=== PATIENT | male | born 1980 | race Caucasian/White ===

== ENCOUNTER 2017-10-26 16:52 | Emergency (ER) | payer SELFPAY ==
[~2017-10-26] VITALS: Ht 180.3 cm; Wt 93.2 kg
[2017-10-26 16:57] VITALS: BP 127/75; PULSE 112; TEMP 97.8
[2017-10-26] MEDS ORDERED: ANTIBIOTIC PO (17:26)
== END 2017-10-26 17:29 | disposition home or self-care (01) ==
LOC: COL.ER 16:52
DX: K08.89 Other specified disorders of teeth and supporting structures (principal); F17.210 Nicotine dependence, cigarettes, uncomplicated

== ENCOUNTER 2020-06-30 17:23 | Emergency (ER) | payer BC, MEDICAID ==
[~2020-06-30] VITALS: Ht 180.3 cm; Wt 95.0 kg
[~2020-06-30 17:23] MED LIST: ANTIBIOTIC PO
[2020-06-30 17:33] VITALS: PULSE 120; TEMP 98.9
[2020-06-30 18:58] LABS: BASO % 0.4 % (0.0-2.0); EOS # 0.1 (0.0-0.7); EOS % 2.2 % (0-4.0); GRAN % 61.1 % (42.2-75.2); HEMATOCRIT 40.6 % (42.0-52.0); HEMOGLOBIN 14.7 g/dl (13.5-18.0); LYMPH # 1.3 (1.2-3.4); LYMPH % 25.7 % (20.0-51.0); MEAN CELL VOLUME 90 fl (80.0-100.0); MEAN CORPUSCULAR HEMOGLOBIN 33 pg (27.0-31.0); MEAN CORPUSCULAR HGB CONC 36 g/dl (33.0-37.0); MEAN PLATELET VOLUME 9.6 fl (7.4-10.4); MONO # 0.5 (0.1-0.6); PLATELET COUNT 177 K/mm3 (130-400); REDCELL DISTRIBUTION WIDTH-CV 11.9 % (11.5-14.5)
[2020-06-30 19:11] LABS: ALANINE AMINOTRANSFERASE 23 U/L (4-49); ALBUMIN 4.3 gm/dL (3.5-5.0); ALKALINE PHOSPHATASE 154 U/L (50-136); ANION GAP 10 mmol/L (7-16); AST,SGOT 18 U/L (15-37); BILIRUBIN,TOTAL 0.8 mg/dL (0.0-1.0); BLOOD UREA NITROGEN 10 mg/dL (9-20); C-REACTIVE PROTEIN 0.7 mg/dL (0.0-0.9); CALCIUM 9.3 mg/dL (8.4-10.2); CARBON DIOXIDE 24 mmol/L (22-30); CHLORIDE 103 mmol/L (98-107); CREATININE, serum 0.85 (0.66-1.25); GLUCOSE 284 mg/dL (74-106); POTASSIUM 4.4 mmol/L (3.4-5.0); SODIUM 137 mmol/L (137-145)
[2020-06-30 19:12] LABS: ACETONE,SERUM NEGATIVE
[2020-06-30 20:52] VITALS: BP 137/88
== END 2020-06-30 20:34 | disposition home or self-care (01) ==
LOC: COL.ER 17:23
PROVIDERS: Emergency Medicine
DX: E11.40 Type 2 diabetes mellitus with diabetic neuropathy, unspecified (principal); E11.65 Type 2 diabetes mellitus with hyperglycemia; F17.200 Nicotine dependence, unspecified, uncomplicated; Z88.0 Allergy status to penicillin; Z79.84 Long term (current) use of oral hypoglycemic drugs
CPT/HCPCS: J7030

== ENCOUNTER 2020-12-23 21:31 | Emergency (ER) | payer BC, MEDICAID ==
[~2020-12-23] VITALS: Ht 180.3 cm; Wt 93.2 kg
[2020-12-23] MEDS ORDERED: FLEXERIL 1010 MG/TAB PO (22:35)
[2020-12-23] MEDS ORDERED: MOTRIN 400400 MG/TAB PO (22:35)
[2020-12-23 23:20] VITALS: BP 107/66; PULSE 95; TEMP 97.7
== END 2020-12-23 23:20 | disposition home or self-care (01) ==
LOC: COL.ER 21:31
DX: S16.1XXA Strain of muscle, fascia and tendon at neck level, initial encounter (principal); Z88.0 Allergy status to penicillin; X58.XXXA Exposure to other specified factors, initial encounter
CPT/HCPCS: J1885

== ENCOUNTER 2021-11-29 09:57 | Day surgery (SDC) | payer BC, MEDICAID ==
[~2021-11-29] VITALS: Ht 180.3 cm; Wt 90.9 kg
[~2021-11-29 09:57] MED LIST changes: +FLEXERIL 1010 MG/TAB PO; +MOTRIN 400400 MG/TAB PO
[2021-11-29] MEDS ORDERED: DOVATO 50-3001 EACH PO (11:26)
[2021-11-29] MEDS ORDERED: DAYPRO 600600 MG PO (11:26)
[2021-11-29] MEDS ORDERED: LEXAPRO 10MG10 MG PO (11:26)
[2021-11-29] MEDS ORDERED: LYRICA 150MG C150 MG PO (11:26)
[2021-11-29] MEDS ORDERED: SEMGLEE (Y100 UNIT/2 SQ (11:27)
[2021-11-29] MEDS ORDERED: TOPAMAX50 MG PO (11:28)
[2021-11-29 11:47] VITALS: BP 98/65; PULSE 78; TEMP 97.8
[2021-11-29 13:15] VITALS: BP 90/66; PULSE 87; TEMP 97.2
[2021-11-29 13:45] VITALS: BP 87/65; PULSE 73
[2021-11-29 14:00] VITALS: BP 101/62; PULSE 73
--- NOTE | 2021-11-29 14:40 | NUR ---
1315 Pt returns from endo procedure via cart and RN assist to [facility]. Pt ambulates from cart to recliner with RN assist. Monitors on and alarms set. Call light within reach. Report received from [facility]. Pt alert and oriented. Pt requests juice and muffin. Pt denies any pain or nausea. 1330 Pt taking food and drink well. No complications noted. 1403 Discharge instructions given to pt. All questions answered to his satisfaction. Handed to pt are a thank you card and discharge information. At this time, waiting for Dr. Colmenares to visit with pt prior to discharge. 1440 Pt transferred out of the hospital via wheelchair and [facility] Bray assist, to private vehicle driven by family.
== END 2021-11-29 14:40 | disposition home or self-care (01) ==
LOC: SDCO 09:57
DX: K21.00 Gastro-esophageal reflux disease with esophagitis, without bleeding (principal); K44.9 Diaphragmatic hernia without obstruction or gangrene; K29.50 Unspecified chronic gastritis without bleeding; D12.3 Benign neoplasm of transverse colon; K63.5 Polyp of colon; K64.3 Fourth degree hemorrhoids; K64.4 Residual hemorrhoidal skin tags; R74.01 Elevation of levels of liver transaminase levels; F17.210 Nicotine dependence, cigarettes, uncomplicated; F17.290 Nicotine dependence, other tobacco product, uncomplicated; Z79.4 Long term (current) use of insulin; Z21 Asymptomatic human immunodeficiency virus [HIV] infection status; Z79.899 Other long term (current) drug therapy
CPT/HCPCS: J2704; J7120

== ENCOUNTER → 2021-12-30 | Outpatient (CLI) | payer BC, MEDICAID ==
[~2021-12-30] MED LIST changes: +DAYPRO 600600 MG PO; +DOVATO 50-3001 EACH PO; +LEXAPRO 10MG10 MG PO; +LYRICA 150MG C150 MG PO; +SEMGLEE (Y100 UNIT/2 SQ; +TOPAMAX50 MG PO
== END ==
LOC: COL.RAD 10:30
DX: K76.0 Fatty (change of) liver, not elsewhere classified (principal); K62.5 Hemorrhage of anus and rectum; R74.8 Abnormal levels of other serum enzymes

== ENCOUNTER → 2022-02-12 | Outpatient (CLI) | payer BC, MEDICAID | LOC: COL.RAD 14:55 | DX: R13.10 Dysphagia, unspecified (principal) ==

== ENCOUNTER 2022-02-17 09:00 | Outpatient (RCR) | payer BC, MEDICAID | END 2022-02-20 | disposition home or self-care (01) | LOC: WSST | DX: R13.10 Dysphagia, unspecified (principal) ==

== ENCOUNTER → 2022-02-25 | Outpatient (CLI) | payer BC, MEDICAID | LOC: MHCPAIN 12:05 | DX: G56.21 Lesion of ulnar nerve, right upper limb (principal); G20 Parkinson's disease; M54.2 Cervicalgia; B97.35 Human immunodeficiency virus, type 2 [HIV 2] as the cause of diseases classified elsewhere | CPT/HCPCS: G0463 ==

== ENCOUNTER 2022-07-05 16:01 | Emergency (ER) | payer BC, MEDICAID ==
[~2022-07-05] VITALS: Ht 180.3 cm; Wt 90.9 kg
[~2022-07-05 16:01] MED LIST changes: +MEDROL 4MG DOSPA4 MG PO; +ULTRAM 50MG TAB50 MG PO; +VALIUM 5MG T5 MG/TAB PO
[2022-07-05] MEDS ORDERED: ROXICODONE 55 MG/TAB (17:50)
[2022-07-05] MEDS ORDERED: ROXICODONE 55 MG/TAB PO (17:59)
[2022-07-05 18:09] VITALS: BP 112/79; PULSE 106; TEMP 97.8
== END 2022-07-05 18:11 | disposition home or self-care (01) ==
LOC: COL.ER 16:01
DX: M54.50 Low back pain, unspecified (principal); F17.200 Nicotine dependence, unspecified, uncomplicated; Z91.14 Patient's other noncompliance with medication regimen; Z28.310 Unvaccinated for COVID-19
CPT/HCPCS: J1170; J3360